=== PATIENT | male | born 1965 | race Caucasian/White ===

== ENCOUNTER 2018-03-22 23:17 | Inpatient (IN) | payer BC ==
[2018-03-23] MEDS ORDERED: Oseltamivir 75 MG CAP PO SCH (02:00)
--- NOTE | 2018-03-23 02:11 | PDOC.FPRHP ---
Addendum entered and electronically signed by Ashok Lo MD 03/23/18 03:34 : Home Medications 1. Proair 108 2 puff q4hr PRN 2. lantus 70 unit qam and 10 unit 1HS 3. lisinoprial 2.5 mg daily 4 hyoscyamine 0.125 mg q6hr PRN 5. Trulicirty 1.5 mg qweek 6. Viagria 100 mg 1 tab PRN 7. Combivent 18-103 mcg 2 puff q4hr PRN 8. humalog 5 unit SC QAC Original Note: - History of Present Illness Chief Complaint: SOB History of Present Illness: This is a 52 yo male with a PMH of DM II, IBS, COPD who presents to the ED from [place] with a CC of SOB. Pt. States that the symptoms began about 1 day [employer]. Pt. Reports an associated cough that started dry and became productive after breathing treatment. He states he has never had anything like this before. He denies fevers or chills. He did report some soreness in his right shoulder that he states is from coughing. - Allergies/Adverse Reactions Allergies Allergy/AdvReac Type Severity Reaction Status Date / Time No Known Drug Allergies Allergy Mild Verified 03/23/18 03:43 - Home Medications Medication Instructions Recorded Confirmed Type Dulaglutide [Trulicity] 1.5 mg SC Q7D 03/23/18 03/23/18 History HumaLOG 5 unit SC AC PRN 03/23/18 03/23/18 History Hyoscyamine Sulfate [Levsin SL] 0.25 mg SL Q6HR PRN 03/23/18 03/23/18 History Insulin Glargine,Hum.Rec.Anlog 10 unit SQ QPM 03/23/18 03/23/18 History [Lantus Solostar] Insulin Glargine,Hum.Rec.Anlog 70 unit SQ QAM 03/23/18 03/23/18 History [Lantus Solostar] Lisinopril 2.5 mg PO DAILY 03/23/18 03/23/18 History - History PMHx:HTN, COPD, DMII, IBS PSHx: Colectomy 2/2 diverticulitis, hiatal hernia surgery, ventral hernia repair FHx: Mother COPD, father lung cancer 2/2 asbestos Social: 40 pack year history, a few drinks 2-3 times a week, no drugs - Review of Systems General: denies: fever/chills, weight/appetite/sleep changes Eyes: denies: eye pain, vision changes ENT: denies: nasal congestion, rhinorrhea Respiratory: reports: cough, shortness of breath. denies: congestion Cardiovascular: denies: chest pain, palpitation, edema Gastrointestinal: denies: nausea, vomiting, diarrhea, constipation, abdominal pain Genitourinary: denies: incontinence, dysuria Skin: denies: rashes, lesions Musculoskeletal: reports: pain (Shoulder pain) Neurological: denies: numbness, syncope, seizure Psychological: denies: anxiety, depression - Vital signs BP: 127/76 HR: 110 RR: 18 Tmax: 98.4 Pox: 93% on 2L Wt: 88 kg - Physical Exam Constitutional: NAD, awake, alert and oriented, well developed HEENT: PERRLA, EOMI, MMM Neck: supple, FROM, no JVD Chest: no-tender to palpation, no lesions Heart: RRR, normal S1/S2, no murmurs/rubs/gallops Lungs: CTAB, no respiratory distress, good air movement, no wheezing Abdomen: soft, non-tender, bowel sounds present, no masses/distention Musculoskeletal: normal structure, normal tone, ROM grossly normal Neurological: CN II-XII intact Skin: good turgor, capillary refill <2 seconds Heme/Lymphatic: no unusual bruising or bleeding Psychiatric: normal mood and affect FMR H&P: Results - Labs Lab results: Sodium 136, potassium 3.7, Chloride 103, bicarb 19, bun 11, cr 0.89, glucose 143 , lactic acid 1.8, Trop neg x1, BNP <10, WBC 12.7, Hgb 16.4, Hct 50.8, ptl 301, Influenza A positive. - Radiology Interpretation CT scan - chest Status: report reviewed by me (CTA: no PE, new, small pulmonary nodules bilaterally, hypodesne lestion emanating from left kidney) FMR H&P: A/P - Problem List (1) Acute respiratory failure with hypoxia Current Visit: Yes Status: Acute Code(s): J96.01 - ACUTE RESPIRATORY FAILURE WITH HYPOXIA (2) COPD exacerbation Current Visit: Yes Status: Acute Code(s): J44.1 - CHRONIC OBSTRUCTIVE PULMONARY DISEASE W (ACUTE) EXACERBATION (3) DMII (diabetes mellitus, type 2) Current Visit: Yes Status: Acute (4) HTN (hypertension) Current Visit: Yes Status: Acute Code(s): I10 - ESSENTIAL (PRIMARY) HYPERTENSION (5) IBS (irritable bowel syndrome) Current Visit: Yes Status: Acute - Plan This is a 52 yo male with a PMH of DM II, IBS, COPD Acute hypoxic respiratory failure 2/2 COPD exacerbation -Pt. Is admitted to medical. We will provide supportive care and duonebs q4hr, abuterol q2hr PRN while pt. Is here. Pt has been started on oral steroids(03/23) as well as azithromycin (03/23). Flu swab was positive. We will start him on tamiflu and respiratory precautions DMII -Continue home meds. ACHS accuchecks, SSI HTN -Continue home meds IBS -Aware Code: Full Prophylaxis: lovenox Family: none at bedside Disposition: Home in 2-3 days FMR H&P: Upper Level - Pertinent history 52 yo M PMH HTN, IDDM, COPD, and HLD. Presents as transfer from [place] [facility] with a CC of worsening SOB and HUIZAR that started approximately 24 hours ago. Reports worsening of symptoms. Also reports left sided shoulder pain that started at 1300 today. Endorses cough. States neb treatments have help with symptoms but was still requiring oxygen. Was sent to [facility] for evaluation and admission. [place]: Labs, CTA-PE protocol, EKG, Solumedrol, duobneb x2, albuterol x1, NS 1L. [facility]: Duoneb x1, Tamiflu, albuterol x1, - Pertinent findings Vitals: Remarkable for spo2 93% on 2L NC, otherwise WNL GEN: mild respiratory distress with movement, speaks in full sentences, A&Ox4 CV: RRR, no murmur Pulm: CTA-B, increased labor of breathing with minimal exertion Skin: warm, dry and intact. Labs: WBC 12.7, D-dimer 0.7, influenza A positive. Imaging: CTA-chest- negative PE, no infiltrates, pulmonary nodules, - Plan Date/Time: 03/23/18 0209 I, Ashok Lo MD, have evaluated this patient and agree with findings/plan as outlined by internet researcher resident. Pertinent changes/additions are listed here. 1. Acute Hypoxic respiratory distress 2/2 influenza A pneumonia vs COPD exacerbation: continue tamiflu, prednisone, scheduled Duoneb with PRN albuterol Neb, and azithromycin. oxygen as need to maintain saturation >92%. 2. HTN: home meds 3. COPD: home meds 4. IDDM: home meds, SSI, ACHS checks, hypoglycemic protocol 5. HLD: bety meds 6. Pulmonary nodule: outpatient CT follow up 7. Tobacco abuse: prn patch, cessation encouraged 8. Diet: CC, HH, 9. PPx: SCD 10. CODE: FULL Dispo: inpatient, medical, >[address] Toledo. Attending Addendum - Attending Addendum Date/Time: 03/23/18 1530 I personally evaluated the patient and discussed the management with Dr. Pizarro I agree with the History, Examination, Assessment and Plan documented above with any addition or exceptions noted below- Briefly this is a 52 yo male with h /o COPD, DM, HTN who presented with 1 day h/o SOB worsening throughout the day. Mild nonproductive cough. Denies fever, sore throat, body aches. just started to feel ill also. PMH/PSH/Meds/SH reviewed and agree with resident's documentation. Afebrile VSS. Exam repeated by me and agree with resident's findings. Labs: WBC=12.7, H/H=16.4/50.8, Iev=738, LR=191, K=3.7, Ub=559, CO2=19 , BUN/Cr=11/0.89, Ezjm=414 CTA- negative for PE. Influenza A swab- positive. A/ P: 1) COPD exacerbation- continue nebs, O2, steroids. 2) Influenza A- started on tamiflu, 3) DM- continue home medications
[2018-03-23] MEDS ORDERED: Ondansetron ODT 4 MG TAB SL PRN (03:01)
[2018-03-23] MEDS ORDERED: Ondansetron HCl/PF 4 MG/2 ML Vial IVP PRN (03:01)
[2018-03-23] MEDS ORDERED: Acetaminophen 325 MG TAB PO PRN (03:08)
[2018-03-23] MEDS ORDERED: Albuterol Sulfate 2.5 mg/3 ml Neb NEB PRN (03:08)
[2018-03-23] MEDS ORDERED: Ondansetron ODT 4 MG TAB PO PRN (03:08)
[2018-03-23 03:12] VITALS: BMI 29.0
[2018-03-23] MEDS ORDERED: Dextrose 5% in Water 1,000 ML IV PRN (03:28)
[2018-03-23] MEDS ORDERED: Dextrose 50% Abboject 50 ML SYRINGE SLOW IVP PRN (03:28)
[2018-03-23] MEDS ORDERED: Hyoscyamine Sulfate SL 0.125 mg Tablet SL PRN (03:38)
[2018-03-23] MEDS ORDERED: Azithromycin 500 MG in Sodium Chloride 0.9% 250 ML 250 ML IVPB SCH (04:00)
[2018-03-23] MEDS: Insulin Regular 300 UNITS/3 ML VIAL SC PRN ×2 (05:06→20:39)
[2018-03-23] MEDS: Lisinopril 2.5 MG TAB PO SCH (08:32)
[2018-03-23] MEDS: Nicotine 21 MG PATCH TD SCH (08:33)
[2018-03-23] MEDS: predniSONE 20 MG TAB PO SCH (08:33)
[2018-03-23] MEDS ORDERED: Non-Formulary Item 1 EACH (Insulin Glargine,Hum.Rec.Anlog [Lantus Solostar] 70 UNIT) SQ SCH (09:00)
[2018-03-23] MEDS: Insulin Glargine 70 UNITS in Pre-Filled Syringe 1 EACH SC SCH (10:10)
[2018-03-23] MEDS: HumaLOG 300 UNITS/3 ML VIAL SC PRN ×2 (12:42→16:38)
[2018-03-23] MEDS: Oseltamivir 75 MG CAP PO SCH (20:35)
[2018-03-23] MEDS ORDERED: Insulin Glargine 10 UNITS in Pre-Filled Syringe 1 EACH SC SCH (21:00)
[2018-03-23] MEDS ORDERED: Non-Formulary Item 1 EACH (Insulin Glargine,Hum.Rec.Anlog [Lantus Solostar] 10 UNIT) SQ SCH (21:00)
[2018-03-24] MEDS: Insulin Regular 300 UNITS/3 ML VIAL SC PRN ×2 (05:17→12:20)
--- NOTE | 2018-03-24 06:37 | PDOC.FM ---
- Subjective Subjective: Mr. Larkin is resting comfortably in bed. He continues to complain of dyspnea especially with ambulation. Denies SOB, body aches, chills or fever. He is eating and drinking well. - Objective Vital Signs & Weight: Vital Signs (12 hours) Temp Pulse Resp BP Pulse Ox 03/24/18 04:24 97.9 F 95 18 116/74 94 L 03/24/18 02:05 95 16 94 L 03/24/18 00:00 98.1 F 101 H 16 109/69 92 L 03/23/18 22:42 87 18 94 L 03/23/18 20:00 94 L 03/23/18 19:00 98.1 F 97 18 111/72 96 Weight Weight 89.2 kg I&O: 03/22/18 03/23/18 03/24/18 06:59 06:59 06:59 Intake Total 520 Balance 520 <Austin Rosenthal - Last Filed: 03/24/18 09:20> - Objective Vital Signs & Weight: Vital Signs (12 hours) Temp Pulse Resp BP Pulse Ox 03/24/18 15:03 98.2 F 95 20 104/69 95 03/24/18 14:45 93 16 95 03/24/18 10:41 99 16 95 Weight Weight 89.2 kg I&O: 03/23/18 03/24/18 03/25/18 06:59 06:59 06:59 Intake Total 520 800 Balance 520 800 <Virgen Toledo - Last Filed: 03/24/18 21:44> Phys Exam - Physical Examination Constitutional: NAD HEENT: moist MMs Respiratory: no wheezing, no rales, no rhonchi, clear to auscultation bilateral Cardiovascular: RRR, no significant murmur, no rub Gastrointestinal: soft, non-tender Musculoskeletal: no edema, pulses present Neurological: non-focal, moves all 4 limbs Psychiatric: normal affect Skin: no rash <Austin Rosenthal - Last Filed: 03/24/18 09:20> Dx/Plan (1) Influenza A Code(s): J10.1 - FLU DUE TO OTH IDENT INFLUENZA VIRUS W OTH RESP MANIFEST Status: Acute (2) COPD exacerbation Code(s): J44.1 - CHRONIC OBSTRUCTIVE PULMONARY DISEASE W (ACUTE) EXACERBATION Status: Acute (3) DMII (diabetes mellitus, type 2) Status: Acute (4) HTN (hypertension) Code(s): I10 - ESSENTIAL (PRIMARY) HYPERTENSION Status: Acute - Plan Plan: Acute hypoxic respiratory failure 2/2 COPD exacerbation -supportive care and duonebs q4hr, abuterol q2hr PRN - oral steroids(03/23) as well as azithromycin (03/23). - Flu swab positive, tamiflu and respiratory precautions DMII -Continue home meds. ACHS accuchecks, SSI \ - POC glucose down trending HTN -Continue home meds IBS -Aware Code: Full Prophylaxis: lovenox Dispo: continue supportive care, possible DC today or tomorrow <Austin Rosenthal - Last Filed: 03/24/18 09:20> (1) Acute respiratory failure with hypoxia Code(s): J96.01 - ACUTE RESPIRATORY FAILURE WITH HYPOXIA Status: Acute (2) COPD exacerbation Code(s): J44.1 - CHRONIC OBSTRUCTIVE PULMONARY DISEASE W (ACUTE) EXACERBATION Status: Acute (3) DMII (diabetes mellitus, type 2) Status: Acute (4) HTN (hypertension) Code(s): I10 - ESSENTIAL (PRIMARY) HYPERTENSION Status: Acute (5) IBS (irritable bowel syndrome) Status: Acute <Virgen Toledo - Last Filed: 03/24/18 21:44> Attending Addendum - Attending Addendum Date/Time: 03/24/182139 I personally evaluated the patient and discussed the management with Dr. Rosenthal I agree with the History, Examination, Assessment and Plan documented above with any addition or exceptions noted below- Patient feelingbetter. Decreased SOB? Able to ambulate more easily. Afebrile VSS. A/P: 1) COPD exacerbation- improved. Continue to monitor through today if remains stable, d/c home this afternoon. Continue nebs, steroids, Start maintenance inhaler. <Virgen Toledo - Last Filed: 03/24/18 21:44>
[2018-03-24] MEDS: Nicotine 21 MG PATCH TD SCH (08:35)
[2018-03-24] MEDS: Oseltamivir 75 MG CAP PO SCH (08:36)
[2018-03-24] MEDS: Lisinopril 2.5 MG TAB PO SCH (08:36)
[2018-03-24] MEDS: predniSONE 20 MG TAB PO SCH (08:36)
[2018-03-24] MEDS: Insulin Glargine 70 UNITS in Pre-Filled Syringe 1 EACH SC SCH (08:37)
[2018-03-24] MEDS ORDERED: Azithromycin 250 MG TAB PO SCH (09:00)
[2018-03-24 15:05] VITALS: BP 104/69; TEMP 98.2
--- NOTE | 2018-03-25 01:28 | DIS-2 ---
RESIDENT: Austin Rosenthal DO ADMITTING ATTENDING: Virgen Toledo MD DISCHARGE ATTENDING: Samy Lucero MD CONSULTATIONS: None. PROCEDURES: None. PRIMARY DIAGNOSIS: Influenza A. SECONDARY DIAGNOSES: 1. Chronic obstructive pulmonary disease exacerbation. 2. Diabetes mellitus type 2. 3. Hypertension. 4. Irritable bowel syndrome. DISPOSITION: Stable. DISCHARGE MEDICATIONS: 1. Insulin glargine 70 units subcutaneously q.a.m. 2. Humalog 5 units SC before meals and p.r.n. 3. Hyoscyamine sulfate 0.25 mg SL q.6 hours p.r.n. 4. Trulicity 1.5 mg SC q.7 days. 5. Lisinopril 2.5 mg p.o. daily. 6. Insulin 10 units SQ q.p.m. 7. Azithromycin 250 mg p.o. daily for 4 days. 8. Dulera 2 puffs inhaled b.i.d., 30 days. 9. Prednisone 40 mg p.o. daily for 4 days. 10. Tamiflu 75 mg p.o. b.i.d. for 4 days. DISCONTINUED MEDICATIONS: None. HISTORY OF PRESENT ILLNESS AND HOSPITAL COURSE: This is a 52-year-old male with a past medical histo ry of diabetes mellitus type 2, irritable bowel syndrome, COPD who presented to the ED from [facility] complaints of shortness of breath. These symptoms began about one day before he got there. He re ports a cough that initially was dry, but became productive. He has been doing breathing treatments at home and reports never having anything like this before. He has received his flu shot. He denied fever or chills at that time, and he did report some soreness in his shoulder. In the ED, he was gi cathryn Tamiflu, Levaquin, and DuoNeb with improvement of his cough. He was then transferred from the [facility] ED to [place], where he was tested for influenza and tested positive for influenza A. He was admitted to the hospital at that point. Home medications were continued. Glucose was elevated at t hat time and controlled with moderate sliding scale. The patient was continued on Tamiflu and starte d on azithromycin, scheduled DuoNeb, and prednisone for COPD exacerbation. The patient improved duri ng his hospital course with improvement of dyspnea and cough. DISCHARGE INSTRUCTIONS: 1. Diet: Diabetic. 2. Activity: As tolerated. 3. Follow up with PCP, Dr. Watkins, in 1 week to evaluate further need for long-term COPD medication s.
[2018-03-25] MEDS ORDERED: Mometasone/Formoterol 120 PUFF INHALER INH SCH (18:30)
== END 2018-03-24 15:48 | disposition home or self-care (01) | DRG 193 ==
LOC: ERS 23:17 → T4-A 03-23 01:42
PROVIDERS: ADMIT Internal Medicine; ATTEND Internal Medicine
DX: J09.X2 Influenza due to identified novel influenza A virus with other respiratory manifestations (principal); J96.01 Acute respiratory failure with hypoxia; J44.1 Chronic obstructive pulmonary disease with (acute) exacerbation; E11.9 Type 2 diabetes mellitus without complications; I10 Essential (primary) hypertension; K58.9 Irritable bowel syndrome, unspecified
CPT/HCPCS: 36416; 94640; 99406; A4216; J0456; J1815; J7050; J7506; J7620

== ENCOUNTER → 2022-05-30 | Day surgery (SDC) | payer BC ==
[2022-05-29 08:40] VITALS: BMI 29.5
[2022-05-30 09:21] VITALS: BP 109/71; TEMP 97.6
== END | disposition home or self-care (01) ==
LOC: RAD 07:07
PROVIDERS: ATTEND Neurological Surgery
PROC: B01B1ZZ Fluoroscopy of Spinal Cord using Low Osmolar Contrast (ICD-10-PCS; principal; 2022-05-30)
DX: M47.12 Other spondylosis with myelopathy, cervical region (principal); M43.12 Spondylolisthesis, cervical region; M48.02 Spinal stenosis, cervical region; M40.202 Unspecified kyphosis, cervical region; Z79.4 Long term (current) use of insulin; Z79.84 Long term (current) use of oral hypoglycemic drugs; Z79.899 Other long term (current) drug therapy
CPT/HCPCS: 62302; 72126

== ENCOUNTER 2022-09-16 09:16 | Outpatient (CLI) | payer BC | END 2022-09-16 09:17 | disposition home or self-care (01) | LOC: TBSIIMAG 09:16 | PROVIDERS: ATTEND Neurological Surgery | DX: M47.22 Other spondylosis with radiculopathy, cervical region (principal); Z98.1 Arthrodesis status | CPT/HCPCS: 72040 ==